=== PATIENT | female | born 1960 | race Caucasian/White ===

== ENCOUNTER 2022-05-05 14:49 | Outpatient (CLI) | payer BC, SELFPAY ==
--- NOTE | 2022-05-05 15:00 | CRLHL7_ITS ---
For Patients: As a result of the Century Cures Act, medical imaging exams and procedure reports are released immediately into your electronic medical record. You may view this report before your referring provider. If you have questions, please contact your health care provider. BILATERAL SCREENING MAMMOGRAM WITH COMPUTER-AIDED DETECTION AND TOMOSYNTHESIS TECHNIQUE: CC and MLO views were obtained. These mammographic images have been obtained using full-field digital technique. These mammographic images were interpreted with the benefit of computer-aided detection. Breast tomosynthesis was used in this interpretation. COMPARISON FILM: 04/17/21, [place] 11/22/18, [place] 09/29/17. FINDINGS: There are scattered areas of fibroglandular density. IMPRESSION: There is no radiographic evidence for malignancy. ASSESSMENT: BI-RADS Category 1: Negative RECOMMENDATION: Routine screening mammogram in 1 year. A lay language report of this examination will be provided to the patient. RUKHSANA SOLORIO M.D. Diagnostic/Nuclear Medicine Radiologist [email or web address] Transcribed: 2:[address]/Dictated by: Rukhsana Solorio MD @ 05/06/2022 8:40:00 AM (Electronically Signed)
== END 2022-05-05 14:50 | disposition home or self-care (01) ==
PROVIDERS: PCP Family Medicine; Visit Provider Family Medicine
DX: Z12.31 Encounter for screening mammogram for malignant neoplasm of breast (principal)
CPT/HCPCS: 77063; 77067

== ENCOUNTER 2022-05-07 10:57 | Outpatient (CLI) | payer BC, SELFPAY ==
[2022-05-07 14:19] LABS: Albumin* 4.5 g/dL (3.3-5.0); Chloride* 103 mmol/L (96-114); Sodium* 139 mmol/L (135-149)
[2022-05-07 14:20] LABS: Potassium* 4.6 mmol/L (3.6-5.1)
[2022-05-07 14:22] LABS: Alanine Aminotransferase* 29 U/L (4-35); Alkaline Phosphatase* 62 U/L (40-150); Aspartate Amino Transferase* 30 U/L (12-35); Bilirubin Total* 0.4 mg/dL (0.1-1.5); Blood Urea Nitrogen* 16 mg/dL (7-30); Carbon Dioxide* 31 mmol/L (20-32); Cholesterol* 271 mg/dL (90-199); Creatinine* 0.7 mg/dL (0.5-1.5); Estimated Glomerular Filt Rate 97 ml/min; Glucose* 100 mg/dL (60-115); Total Protein* 6.9 g/dL (6.0-8.3); Triglycerides* 166 mg/dL (40-149)
[2022-05-07 14:23] LABS: Calcium* 9.5 mg/dL (8.4-10.6); HDL Cholesterol* 53 mg/dL (>=50); LDL Cholesterol Calculated 185 mg/dL (<100)
== END 2022-05-07 10:58 | disposition home or self-care (01) ==
PROVIDERS: PCP Family Medicine; Visit Provider Family Medicine
DX: Z01.419 Encounter for gynecological examination (general) (routine) without abnormal findings (principal); E78.5 Hyperlipidemia, unspecified; R53.83 Other fatigue
CPT/HCPCS: 80053; 80061

== ENCOUNTER 2022-05-18 10:44 | Outpatient (CLI) | payer BC, SELFPAY ==
--- NOTE | 2022-05-18 11:15 | CRLHL7_ITS ---
For Patients: As a result of the Century Cures Act, medical imaging exams and procedure reports are released immediately into your electronic medical record. You may view this report before your referring provider. If you have questions, please contact your health care provider. CLINICAL HISTORY: : Left axillary fullness COMPARISON: Bilateral screening mammogram 05/05/2022 TECHNIQUE: Real-time ultrasound imaging of left axilla with imaging documentation. FINDINGS: Normal left axillary lymph node is present with a thin hypoechoic cortex measuring less than 2 millimeters. Normal central fatty hilum and normal internal vascularity. This lymph node measures 2.1 x 0.7 x 0.6 cm. Other smaller lymph nodes are present elsewhere. IMPRESSION: Normal left axillary lymph nodes. No suspicious findings. RECOMMENDATIONS: Annual bilateral screening mammography. Results and recommendations were discussed with the patient at the time of the exam. BI-RADS: 2. Benign finding. Dictated by Sonu Street MD @ 05/18/2022 11:57:13 AM (Electronically Signed)
== END 2022-05-18 10:45 | disposition home or self-care (01) ==
LOC: MAMMO 10:44
PROVIDERS: PCP Family Medicine; Visit Provider Family Medicine
DX: M79.89 Other specified soft tissue disorders (principal)
CPT/HCPCS: 76882

== ENCOUNTER 2023-06-24 09:36 | Outpatient (CLI) | payer BC, SELFPAY ==
--- NOTE | 2023-06-24 09:45 | CRLHL7_ITS ---
For Patients: As a result of the Cures Act, medical imaging exams and procedure reports are released immediately into your electronic medical record. You may view this report before your referring provider. If you have questions, please contact your health care provider. BILATERAL SCREENING MAMMOGRAM WITH COMPUTER-AIDED DETECTION AND TOMOSYNTHESIS TECHNIQUE: CC and MLO views were obtained. These mammographic images have been obtained using full-field digital technique. These mammographic images were interpreted with the benefit of computer-aided detection. Breast tomosynthesis was used in this interpretation. COMPARISON FILM: 05/05/22, 04/17/21, 11/22/18. FINDINGS: There are scattered areas of fibroglandular density. IMPRESSION: There is no radiographic evidence for malignancy. ASSESSMENT: BI-RADS Category 1: Negative RECOMMENDATION: Routine screening mammogram in 1 year. A lay language report of this examination will be provided to the patient. SONU WOMACK M.D. Diagnostic Radiologist [email or web address] Transcribed: 06/24/2023, 2:[address]/Dictated by: Sonu Womack MD @ 06/24/2023 1:03:00 PM (Electronically Signed)
== END 2023-06-24 09:37 | disposition home or self-care (01) ==
LOC: MAMMO 09:39
PROVIDERS: PCP Family Medicine; Visit Provider Family Medicine
DX: Z12.31 Encounter for screening mammogram for malignant neoplasm of breast (principal)
CPT/HCPCS: 77063; 77067

== ENCOUNTER 2023-06-28 10:10 | Outpatient (CLI) | payer BC, SELFPAY | END 2023-06-28 10:11 | disposition home or self-care (01) | LOC: NFLDREF 06-30 11:02 | PROVIDERS: PCP Family Medicine; Referring Provider Family Medicine; Visit Provider Family Medicine | DX: E78.5 Hyperlipidemia, unspecified (principal); Z13.9 Encounter for screening, unspecified | CPT/HCPCS: 80053; 80061 ==

== ENCOUNTER 2024-07-26 10:01 | Outpatient (CLI) | payer BC, SELFPAY ==
--- NOTE | 2024-07-26 10:15 | CRLHL7_ITS ---
For Patients: As a result of the Century Cures Act, medical imaging exams and procedure reports are released immediately into your electronic medical record. You may view this report before your referring provider. If you have questions, please contact your health care provider. BILATERAL SCREENING MAMMOGRAM WITH COMPUTER-AIDED DETECTION AND TOMOSYNTHESIS TECHNIQUE: CC and MLO views were obtained. These mammographic images have been obtained using full-field digital technique. These mammographic images were interpreted with the benefit of computer-aided detection. Breast Tomosynthesis was used in this interpretation. COMPARISON FILM: 06/24/23, 05/05/22, 04/17/21. FINDINGS: There are scattered areas of fibroglandular density. IMPRESSION: There is no radiographic evidence for malignancy. ASSESSMENT: BI-RADS Category 1: Negative RECOMMENDATION: Routine screening mammogram in 1 year. A lay language report of this examination will be provided to the patient. Sonu Street M.D. Diagnostic Radiologist [email or web address] SP/Dictated by: Sonu Street MD @ 07/26/2024 10:49:00 AM (Electronically Signed)
== END 2024-07-26 10:02 | disposition home or self-care (01) ==
LOC: MAMMO 10:04
PROVIDERS: PCP Family Medicine; Visit Provider Family Medicine
DX: Z12.31 Encounter for screening mammogram for malignant neoplasm of breast (principal)
CPT/HCPCS: 77063; 77067

== ENCOUNTER 2024-07-26 10:35 | Outpatient (CLI) | payer BC, SELFPAY | END 2024-07-26 10:36 | disposition home or self-care (01) | LOC: NFLDREF 08-01 02:57 | PROVIDERS: PCP Family Medicine; Referring Provider Family Medicine; Visit Provider Family Medicine | DX: E78.5 Hyperlipidemia, unspecified (principal); M25.50 Pain in unspecified joint; K59.04 Chronic idiopathic constipation; Z13.29 Encounter for screening for other suspected endocrine disorder | CPT/HCPCS: 80053; 80061; 84443 ==

== ENCOUNTER 2024-08-01 13:31 | Outpatient (CLI) | payer BC, SELFPAY ==
[2024-08-03 23:24] LABS: HPV Source Cervical/Vag; HPV, High Risk by TMA Not Detected
[2024-08-14 14:19] LABS: Pap Test Reviewed by Path Done
== END 2024-08-01 13:32 | disposition home or self-care (01) ==
PROVIDERS: PCP Family Medicine; Visit Provider Family Medicine
DX: Z12.4 Encounter for screening for malignant neoplasm of cervix (principal); Z11.51 Encounter for screening for human papillomavirus (HPV)
CPT/HCPCS: 87624; 87625; 88141; 88142

== ENCOUNTER 2024-08-23 13:48 | Outpatient (CLI) | payer BC, SELFPAY | END 2024-08-23 13:49 | disposition home or self-care (01) | LOC: RAD 13:49 | PROVIDERS: PCP Family Medicine; Visit Provider Family Medicine | DX: Z78.0 Asymptomatic menopausal state (principal) | CPT/HCPCS: 77080 ==

== ENCOUNTER 2024-10-10 06:12 | Day surgery (SDC) | payer BC, SELFPAY ==
[2024-10-10] VITALS (7 sets, daily range): BP systolic 124–152; BP diastolic 66–77; PULSE 55–71; RESP 16; TEMP 36.3–36.8; O2SAT 93–99; BMI 27.6
[2024-10-10] MEDS: LACTATED RINGERS 1000 ML 1,000 ML 100 ML IV (06:42)
[2024-10-10] MEDS: SODIUM CHLORIDE 0.9 % (FLUSH) 10 ML SYRINGE IVF (06:42)
[2024-10-10] MEDS: CEFAZOLIN 1 GM inj IVP (07:14)
--- NOTE | 2024-10-10 07:30 | CRLHL7_ITS ---
For Patients: As a result of the Cures Act, medical imaging exams and procedure reports are released immediately into your electronic medical record. You may view this report before your referring provider. If you have questions, please contact your health care provider. Indication: Left Bunionectomy Technique: Two fluoroscopic images of the left foot. Fluoroscopic time 3.1 seconds. IMPRESSION: Fluoroscopic guidance for bunionectomy. Dictated by Sonu Street MD @ 10/10/2024 8:54:53 AM (Electronically Signed)
[2024-10-10] MEDS: BUPIVACAINE 0.25% 30 ML INJECTION (07:40)
--- NOTE | 2024-10-10 09:06 | P.ANES_ITS ---
Anesthesia Charges Start Date/Time Anesthesia Start Date: 10/10/24 Anesthesia Start Time: 07:29 Stop Date/Time Anesthesia Stop Date: 10/10/24 Anesthesia Stop Time: 08:42 Coding CPT Codes CPT Codes: ANESTH LOWER LEG BONE SURG - 40212 ([id number]) P2 - PATIENT W/MILD SYST DISEASE, QK - CHIEF QUALITY OFFICER 2-4 CNCRNT ANES PROC, QX - PROTECTIVE SIGNAL OPERATOR SVC W/ MD MED DIRECTION
--- NOTE | 2024-10-10 09:06 | W.PM.PODPROC ---
Date of Procedure: 10/10/24 Surgeon: Freddie Parker DPM Co-Surgeon: Assist: Dr. Brooklyn Rodriguez DPM Pre-op Diagnosis: Exostosis 1st metatarsal, left Post-op Diagnosis: Exostosis 1st metatarsal, left Type of Procedure: 1. Cheilectomy 1st metatarsal, left Indications: Painful dorsomedial exostosis recalcitrant to conservative cares Procedure Description: The patient was identified prior to being brought into the operating room using the name and date of as identifiers. The intended surgical plan was again reviewed in detail with the patient as well as the rationale for surgery, the most common risks, complications, and expected recovery course. The patient was given the opportunity to ask questions which were answered to the best of my ability. The patient ultimately voiced no questions or concerns, and agreed to proceed forward with the surgery as planned.?The patient was brought from the preoperative holding area to the operating room, and placed on the operating table in the supine position. At this time, a time-out was performed to identify the proper patient, site, and operation to be performed. A well-padded pneumatic ankle tourniquet was applied to the patient's operative ankle. A preoperative injection of 0.25% Marcaine plain was administered in a watson block fashion to the patient's right foot. The operative foot was then scrubbed, prepped, and draped in the normal sterile fashion. The operative lower extremity was exsanguinated and the pneumatic ankle tourniquet was inflated to a level of 250 mmHg.? The surgical incision was mapped out over the dorsal medial aspect of the first metatarsal overlying the palpable, known prominence. Incision was carried through skin and deepened through?subcutaneous tissues, taking care to retract and protect all vital neural and vascular structures.?The incision was then deepened to the capsule and periosteum overlying the first metatarsophalangeal joint where?a?linear capsulotomy was performed to free the dorsal, medial, and lateral aspects of the first metatarsal head. The first metatarsal head?did not demonstrate any full thickness cartilage loss.?The dorsal medial prominence of the first metatarsal head and a portion of the dorsal aspect of the base of the proximal phalanx were resected using a combination of a saw, rongeur and rasp. The surgical site was thoroughly irrigated with normal saline.?The capsular tissues were approximated with absorbable suture and the skin edges were then approximated without tension using nonabsorbable sutures in a horizontal mattress fashion. closure.?A well-padded sterile dressing was applied from the forefoot to above the ankle. The patient was successfully reversed of anesthesia and transferred to the recovery area where the vital signs were stable and neurovascular status intact to the operative lower extremity.?Intraoperative fluoroscopy was utilized to confirm excision of the palpable exostosis of the first metatarsal.? Anesthesia: MAC and local Hemostasis: ankle (40 minutes at 250mmHg) Estimated blood loss (mL): 5 Specimens: none sent Disposition: PACU
--- NOTE | 2024-10-10 09:06 | W.ANESCHARGE ---
Anesthesia Charges Start Date/Time Anesthesia Start Date: 10/10/24 Anesthesia Start Time: 07:29 Stop Date/Time Anesthesia Stop Date: 10/10/24 Anesthesia Stop Time: 08:42 Coding CPT Codes CPT Codes: ANESTH LOWER LEG BONE SURG - 47105 ([id number]) P2 - PATIENT W/MILD SYST DISEASE, QK - AIR QUALITY INSTRUMENT SPECIALIST 2-4 CNCRNT ANES PROC, QX - EDI MANAGER SVC W/ MD MED DIRECTION
--- NOTE | 2024-10-10 10:12 | P.ANES_ITS ---
Anesthesia Charges Start Date/Time Anesthesia Start Date: 10/10/24 Anesthesia Start Time: 07:29 Stop Date/Time Anesthesia Stop Date: 10/10/24 Anesthesia Stop Time: 08:42 Coding CPT Codes CPT Codes: ANESTH LOWER LEG BONE SURG - 12320 ([id number]) P2 - PATIENT W/MILD SYST DISEASE, QK - CHIEF CLINICAL OFFICER 2-4 CNCRNT ANES PROC, QX - REPAIRING CALIBRATOR SVC W/ MD MED DIRECTION
--- NOTE | 2024-10-10 10:12 | W.ANESCHARGE ---
Anesthesia Charges Start Date/Time Anesthesia Start Date: 10/10/24 Anesthesia Start Time: 07:29 Stop Date/Time Anesthesia Stop Date: 10/10/24 Anesthesia Stop Time: 08:42 Coding CPT Codes CPT Codes: ANESTH LOWER LEG BONE SURG - 92514 ([id number]) P2 - PATIENT W/MILD SYST DISEASE, QK - SUPERINTENDENT PIER 2-4 CNCRNT ANES PROC, QX - FISHER SPEAR SVC W/ MD MED DIRECTION
== END 2024-10-10 10:35 | disposition home or self-care (01) ==
LOC: OR 06:14
PROVIDERS: PCP Family Medicine; Visit Provider Podiatrist
PROC: (CPT 28292; principal; 2024-10-10 07:30)
DX: M20.12 Hallux valgus (acquired), left foot (principal); M21.612 Bunion of left foot; M25.775 Osteophyte, left foot; M89.8X7 Other specified disorders of bone, ankle and foot; K59.04 Chronic idiopathic constipation; E78.5 Hyperlipidemia, unspecified
CPT/HCPCS: 28289; 01480; 73620; 76000; J0665; J0690; J1100; J2250; J2405; J2704; J3490; J7120

== ENCOUNTER 2025-04-25 08:30 | Outpatient (CLI) | payer BC, SELFPAY | END 2025-04-25 08:31 | disposition home or self-care (01) | LOC: NFLDREF 05-07 04:33 | PROVIDERS: PCP Family Medicine; Referring Provider Family Medicine; Visit Provider Family Medicine | DX: E78.5 Hyperlipidemia, unspecified (principal) | CPT/HCPCS: 84478 ==